=== PATIENT | male | born 1985 | race African-American/Black ===

== ENCOUNTER 2018-12-01 08:56 | Inpatient (IN) | payer OTHER ==
[2018-12-01 10:06] VITALS: BMI 25.5
--- NOTE | 2018-12-01 10:56 | HP ---
COWS - Scale Resting Pulse: 0= [place] 80 or Below Sweatin=Flushed/Facial Moisture Restless Observation: 0= Sits Still Pupil Size: 0= Normal to Room Light Bone or Joint Aches: 1= Mild Discomfort Runny Nose/ Eye Tearin= Nasal Congestion GI Upset > 30mins: 2= Nausea/Diarrhea Tremor Observation: 2= Slight Tremor Visible Yawning Observation: 1= 1-2x During Session Anxiety or Irritability: 1=Feels Anxious/Irritable Goose Flesh Skin: 3=Piloerection COWS Score: 13 CIWA Score Nausea/Vomitin-Mild Nausea/No Vomiting Muscle Tremors: 3 Anxiety: 2 Agitation: 1-Slight > Activity Paroxysmal Sweats: 3 Orientation: 0-Oriented Tacttile Disturbances: 0-None Auditory Disturbances: 0-None Visual Disturbances: 0-None Headache: 0-None Present CIWA-Ar Total Score: 10 - Admission Criteria OASAS Guidelines: Admission for Medically Managed Detox: Requires at least one of the followin. CIWA greater than 12 2. Seizures within the past 24 hours 3. Delirium tremens within the past 24 hours 4. Hallucinations within the past 24 hours 5. Acute intervention needed for co occurring medical disorder 6. Acute intervention needed for co occurring psychiatric disorder 7. Severe withdrawal that cannot be handled at a lower level of care (continued vomiting, continued diarrhea, abnormal vital signs) requiring intravenous medication and/or fluids 8. Admission ROS [facility] Chief Complaint: "I am here for detox and then rehab" Allergies/Adverse Reactions: Allergies Allergy/AdvReac Type Severity Reaction Status Date / Time No Known Allergies Allergy Verified 12/01/18 11:01 History of Present Illness: 33 y/o male with a long history of addiction presents for alcohol and opiates withdrawal. Pt endorses using Fentanyl because "i need the heroin in it and I use it when I can't get heroin". Denies substance induced seizures nor blackouts. Pt states he was in the methadone program at [facility] but stopped going since last June because "I statrted making money again to support my habit". Utox positive for methadone but he states he uses street methadone Pt denies legal mandate, states he is self referred. Denies any medical nor psychiatric hx. Denies Suicidal ideation now nor in the past. Others' Prescriptions Patient Name: Mgiuel Medina Date: 1985 Address: [address] [place] [address] Sex: Male Rx Written Rx Dispensed Drug Quantity Days Supply Prescriber Name 06/13/2018 06/17/2018 oxycodone-acetaminophen 10-325 mg tab 180 30 [place], Willam O Ii (D O ) 05/09/2018 05/17/2018 oxycodone-acetaminophen 10-325 mg tab 180 30 [place], Willam O Ii (D O ) 04/18/2018 04/18/2018 oxycodone-acetaminophen 10-325 mg tab 180 30 [place], Willam O Ii (D O ) 03/14/2018 03/23/2018 oxycodone-acetaminophen 10-325 mg tab 180 30 [place], Willam O Ii (D O ) 02/22/2018 02/25/2018 oxycodone-acetaminophen 10-325 mg tab 180 30 [place], Willam O Ii (D O ) 01/17/2018 01/19/2018 oxycodone-acetaminophen 10-325 mg tab 180 30 [place], Willam O Ii (D O ) 12/17/2017 12/24/2017 oxycodone-acetaminophen 10-325 mg tab 180 30 [place], Willam O Ii (D O ) Patient Name: Miguel Medina Date: 1985 Address: [address] [id number] Sex: Male Rx Written Rx Dispensed Drug Quantity Days Supply Prescriber Name 01/04/2018 01/04/2018 zolpidem tartrate 10 mg tablet 30 30 Claudio Cruz MD Exam Limitations: No Limitations - Ebola screening Have you traveled outside of the country in the last 21 days: No (N) Have you had contact with anyone from an Ebola affected area: No Have you been sick,other than usual withdrawal symptoms: No Do you have a fever: No - Review of Systems Constitutional: Loss of Appetite, Unintentional Wgt. Loss EENT: reports: Other (wear glasses) Respiratory: reports: No Symptoms reported Cardiac: reports: Palpitations GI: reports: Diarrhea : reports: No Symptoms Reported Musculoskeletal: reports: Back Pain (lower back) Integumentary: reports: No Symptoms Reported Neuro: reports: Headache (when withdrawing) Endocrine: reports: No Symptoms Reported Hematology: reports: No Symptoms Reported Psychiatric: reports: No Sypmtoms Reported Other Systems: Reviewed and Negative Patient History - Patient Medical History Hx Anemia: No Hx Asthma: No Hx Chronic Obstructive Pulmonary Disease (COPD): No Hx Cancer: No Hx Cardiac Disorders: No Hx Congestive Heart Failure: No Hx Hypertension: No Hx Hypercholesterolemia: No Hx Pacemaker: No HX Cerebrovascular Accident: No Hx Seizures: No Hx Dementia: No Hx Diabetes: No Hx Gastrointestinal Disorders: Yes (Heartburn sometimes, not on meds) Hx Liver Disease: No Hx Genitourinary Disorders: No Hx Sexually Transmitted Disorders: No Hx Renal Disease (ESRD): No Hx Thyroid Disease: No Hx Human Immunodeficiency Virus (HIV): No Hx Hepatitis C: No Hx Depression: Yes (Sometimes, not on meds) Hx Suicide Attempt: No (Denies SI) Hx Bipolar Disorder: No Hx Schizophrenia: No - Patient Surgical History Hx Neurologic Surgery: No Hx Cataract Extraction: No Hx Cardiac Surgery: No Hx Lung Surgery: No Hx Breast Surgery: No Hx Breast Biopsy: No Hx Abdominal Surgery: No Hx Appendectomy: No Hx Cholecystectomy: No Hx Genitourinary Surgery: No Hx Section: No Hx Orthopedic Surgery: No Hx Hysterectomy: No Anesthesia Reaction: No - PPD History Previous Implant?: Yes Documented Results: Positive w/o proof PPD to be Administered?: No - Reproductive History Patient is a Female of Child Bearing Age (11 -55 yrs old): No - Smoking Cessation Smoking history: Current every day smoker Have you smoked in the past 12 months: Yes Aproximately how many cigarettes per day: 10 Initiated information on smoking cessation: Yes 'Breaking Loose' booklet given: 12/01/18 - Substance & Tx. History Hx Alcohol Use: Yes Hx Substance Use: Yes Substance Use Type: Alcohol, Heroin, Opiates Hx Substance Use Treatment: No - Substances Abused Alcohol Route: Oral Frequency: 3-6 times per week Amount used: a fifth of cognac Age of first use: 16 Date of Last Use: 11/29/18 Heroin Route: Inhalation Frequency: Daily Amount used: 5 bags Age of first use: 31 Date of Last Use: 11/30/18 Family Disease History - Family Disease History Family Disease History: Heart Disease: Mother (Alcohol), Other: Father ( Substance abuse), Mother Admission Physical Exam BHS - Vital Signs Vital Signs: Vital Signs - 24 hr 12/01/18 10:05 Temperature 98.3 F Pulse Rate 78 Respiratory 20 Rate Blood Pressure 114/58 L - Physical General Appearance: Yes: Mild Distress HEENTM: Yes: Other (wears glasses) Respiratory: Yes: Chest Non-Tender, No Respiratory Distress, No Accessory Muscle Use Neck: Yes: No masses,lesions,Nodules, Trachea in good position Breast: Yes: Breast Exam Deferred Cardiology: Yes: Within Normal Limits Abdominal: Yes: Normal Bowel Sounds, Soft, Distended Genitourinary: Yes: Within Normal Limits Back: Yes: Within Normal Limits Musculoskeletal: Yes: full range of Motion, Gait Steady Extremities: Yes: Normal Capillary Refill, Normal Inspection Neurological: Yes: Within Normal Limits, Fully Oriented, Alert, Motor Strength 5 /5 Integumentary: Yes: Within Normal Limits Lymphatic: Yes: Within Normal Limits - Diagnostic (1) Uncomplicated opioid dependence Current Visit: Yes Status: Acute (2) Alcohol dependence, uncomplicated Current Visit: Yes Status: Acute (3) Marijuana dependence Current Visit: Yes Status: Acute (4) Nicotine dependence Current Visit: Yes Status: Acute (5) Fentanyl dependence Current Visit: Yes Status: Acute (6) Sad mood Current Visit: Yes Status: Acute (7) Homelessness Current Visit: Yes Status: Acute Cleared for Admission S - Detox or Rehab [facility] Level of Care: Medically Managed Detox Regimen/Protocol: Methadone/Librium BHS Breath Alcohol Content Breath Alcohol Content: 0 Urine Drug Screen - Results Drug Screen Negative: No Urine Drug Screen Results: THC-Marijuana, MTD-Methadone, FEN-Fentanyl Inpatient Rehab Admission - Rehab Decision to Admit Inpatient rehab admission?: No
[2018-12-01] MEDS ORDERED: METHADONE HCL 10 MG TABLET (FOR DETOX USE ONLY) PO ONE ×2 (11:46→23:00)
[2018-12-01] MEDS ORDERED: MAG HYDROX/AL HYDROX/SIMETH 30 ML UNIT-DOSE CUP PO PRN (11:46)
[2018-12-01] MEDS ORDERED: MENTHOL/PHENOL 1 EACH UD MM PRN (11:46)
[2018-12-01] MEDS ORDERED: NICOTINE POLACRILEX 2 MG GUM BUC PRN (11:46)
[2018-12-01] MEDS ORDERED: guaiFENesin/D-METHORPHAN HB 10 ML UNIT-DOSE CUPS PO PRN (11:46)
[2018-12-01] MEDS ORDERED: IBUPROFEN 400 MG TABLET (FP) PO PRN (11:46)
[2018-12-01] MEDS ORDERED: LOPERAMIDE HCL 2 MG CAPSULE PO PRN (11:46)
[2018-12-01] MEDS ORDERED: ACETAMINOPHEN 325 MG TABLET (FP) PO PRN (11:46)
[2018-12-01] MEDS ORDERED: MAGNESIUM HYDROX 2400MG/30ML ORAL SUSPENSION 30 ML CUP PO PRN (11:46)
[2018-12-01] MEDS ORDERED: MAGNESIUM CITRATE 300 ML BOTTLE PO PRN (11:46)
[2018-12-01] MEDS ORDERED: P-EPHED 60MG/TRIPROLIDI 2.5MG TABLET PO PRN (11:46)
[2018-12-01] MEDS ORDERED: chlordiazePOXIDE HCL 25 MG CAPSULE PO PRN (11:46)
[2018-12-01] MEDS: NICOTINE 14 MG/24 HOURS TOPICAL PATCH TD SCH (14:42)
[2018-12-01] MEDS: chlordiazePOXIDE HCL 25 MG CAPSULE PO SCH ×2 (17:35→22:26)
[2018-12-01] MEDS ORDERED: MELATONIN 5 MG TABLETS PO PRN (22:00)
[2018-12-01] MEDS: THIAMINE HCL 100 MG TABLET (FP) PO SCH (22:26)
[2018-12-02] MEDS: chlordiazePOXIDE HCL 25 MG CAPSULE PO SCH ×4 (06:22→22:13)
[2018-12-02 09:54] LABS: HEMATOCRIT 36.8 % (35.4-49); HEMOGLOBIN 12.1 GM/dL (11.7-16.9); MCH 29.5 pg (25.7-33.7); MCHC 32.9 g/dl (32.0-35.9); MEAN CELL VOLUME 89.7 fl (80-96); MEAN PLT VOLUME 8.7 fl (7.5-11.1); PLATELET COUNT 207 K/MM3 (134-434); RBC 4.11 M/mm3 (4.00-5.60); WHITE BLOOD COUNT 8.3 K/mm3 (4.0-10.0)
[2018-12-02] MEDS ORDERED: METHADONE HCL 10 MG TABLET (FOR DETOX USE ONLY) PO SCH (10:00)
[2018-12-02] MEDS: PRENATAL VITAMINS W/ FOLIC ACID TABLET (FP) PO SCH (10:10)
[2018-12-02] MEDS: NICOTINE 14 MG/24 HOURS TOPICAL PATCH TD SCH (10:12)
[2018-12-02 10:29] LABS: ALBUMIN 3.8 g/dl (3.4-5.0); ALK PHOS 73 U/L (45-117); ANION GAP 5 MMOL/L (8-16); BILIRUBIN,TOTAL 0.5 mg/dL (0.2-1); BLOOD UREA NITROGEN 16 mg/dL (7-18); CALCIUM 9.2 mg/dL (8.5-10.1); CHLORIDE 104 mmol/L (98-107); CO2 31 mmol/L (21-32); CREATININE 0.8 mg/dL (0.55-1.3); GLUCOSE,RANDOM 50 mg/dL (74-106); POTASSIUM 4.2 mmol/L (3.5-5.1); SGOT/AST 17 U/L (15-37); SGPT/ALT 20 U/L (13-61); SODIUM 139 mmol/L (136-145); TOT PROT 6.6 g/dl (6.4-8.2)
--- NOTE | 2018-12-02 14:13 | CONSULT ---
[facility] Psychiatric Consult - Data Date of interview: 12/02/18 Admission source: [facility] Identifying data: This is a 33 years old male, single, childless, unemployed, homeless, on [place] support, [facility] no psychiatric hospitalization history, is here due to Alcohol, Opioids, Cannabis and Nicotine dependence, is reporting withdrawal symptoms and seeking for detox. Substance Abuse History: Smoking history: Current every day smoker. Have you smoked in the past 12 months: Yes. Aproximately how many cigarettes per day: 10. Initiated information on smoking cessation: Yes. 'Breaking Loose' booklet given: 12/01/18. - Substance & Tx. History. Hx Alcohol Use: Yes. Hx Substance Use: Yes. Substance Use Type: Alcohol, Heroin, Opiates. Hx Substance Use Treatment: No. - Substances Abused. Alcohol. Route: Oral. Frequency: 3-6 times per week. Amount used: a fifth of cognac. Age of first use: 16. Date of Last Use: 11/29/18. Heroin. Route: Inhalation. Frequency : Daily. Amount used: 5 bags. Age of first use: 31. Date of Last Use: Medical History: Denies significant medical problems. MMTP history Psychiatric History: Patient reports history of depression and anxiety, reports taking prior to0m admission: [id number] poqd. Elavil 50mg po qhs. Patient denies suicidal homicidal history, psychiatric hospitalization history as well. Physical/Sexual Abuse/Trauma History: Denies Additional Comment: [id number] poqd. Elavil 50mg po qhs Mental Status Exam - Mental Status Exam Alert and Oriented to: Person Cognitive Function: Fair Patient Appearance: Well Groomed Mood: Anxious Affect: Mood Congruent Patient Behavior: Cooperative Speech Pattern: Appropriate Voice Loudness: Mildly Soft/Quiet Thought Process: Goal Oriented Thought Disorder: Being Controlled Hallucinations: Denies Suicidal Ideation: Denies Homicidal Ideation: Denies Insight/Judgement: Fair Sleep: Difficulty falling asleep Appetite: Fair Muscle strength/Tone: Normal Gait/Station: Normal Additional Comments: [id number] poqd. Elavil 50mg po qhs Psychiatric Findings - Problem List (Drayden 1, 2,3) (1) Drug-induced mood disorder Current Visit: Yes Status: Acute (2) Alcohol dependence, uncomplicated Current Visit: Yes Status: Acute (3) Fentanyl dependence Current Visit: Yes Status: Acute (4) Marijuana dependence Current Visit: Yes Status: Acute (5) Nicotine dependence Current Visit: Yes Status: Acute (6) Sad mood Current Visit: Yes Status: Acute - Initial Treatment Plan Initial Treatment Plan: [id number] poqd. Elavil 50mg po qhs
--- NOTE | 2018-12-02 15:00 | PN ---
S CIWA - CIWA Score Nausea/Vomitin-No Nausea/No Vomiting Muscle Tremors: None Anxiety: 5 Agitation: 3 Paroxysmal Sweats: 3 Orientation: 0-Oriented Tacttile Disturbances: 3-Moderate Itch/Numb/Burn Auditory Disturbances: 0-None Visual Disturbances: 0-None Headache: 2-Mild CIWA-Ar Total Score: 16 BHS COWS - Scale Resting Pulse: 1= [place] 81-100 Sweatin= Chills/Flushing Restless Observation: 1= Difficult to Sit Still Pupil Size: 0= Normal to Room Light Bone or Joint Aches: 4=Acute Joint/Muscle Pain Runny Nose/ Eye Tearin= None GI Upset > 30mins: 1= Stomach Cramp Tremor Observation of Outstretched Hands: 0= None Yawning Observation: 0= None Anxiety or Irritability: 4=Extreme Anxiety Goose Flesh Skin: 0=Smooth Skin COWS Score: 12 BHS Progress Note (SOAP) Subjective: Sweating, Chills, H/A, Body Aches, Stomach Cramping, Interrupted Sleep. Objective: PATIENT A & O X 3, OBSERVED AMBULATING ON UNIT. IN NO ACUTE DISTRESS. 12/02/18 14:59 Vital Signs Temperature 97.3 F L 12/02/18 13:31 Pulse Rate 83 12/02/18 13:31 Respiratory Rate 18 12/02/18 13:31 Blood Pressure 111/70 12/02/18 13:31 O2 Sat by Pulse Oximetry (%) Laboratory Tests 12/02/18 12/02/18 12/02/18 07:50 07:50 08:00 WBC 8.3 RBC 4.11 Hgb 12.1 Hct 36.8 MCV 89.7 MCH 29.5 MCHC 32.9 RDW 16.0 H Plt Count 207 MPV 8.7 Sodium 139 Potassium 4.2 Chloride 104 Carbon Dioxide 31 Anion Gap 5 L BUN 16 Creatinine 0.8 Creat Clearance w eGFR > 60 Random Glucose 50 L Calcium 9.2 Total Bilirubin 0.5 AST 17 ALT 20 Alkaline Phosphatase 73 Total Protein 6.6 Albumin 3.8 RPR Titer Nonreactive LABS NOTED. Assessment: 12/02/18 14:59 WITHDRAWAL SYMPTOMS. Plan: CONTINUE DETOX. INCREASE DAILY PO FLUID INTAKE. ROBOXIN PO BID FOR BODY ACHES/ MUSCLE CRAMPS.
[2018-12-02] MEDS: METHOCARBAMOL 750 MG TABLET PO SCH ×2 (15:49→22:13)
[2018-12-02] MEDS: PARoxetine HCL 10 MG TABLET (FP) PO SCH (15:49)
[2018-12-02] MEDS ORDERED: PARoxetine HCL 10 MG TABLET (FP) PO ONE (16:30)
[2018-12-02] MEDS ORDERED: AMITRIPTYLINE HCL 25 MG TABLET (FP) PO SCH (22:00)
[2018-12-02] MEDS: THIAMINE HCL 100 MG TABLET (FP) PO SCH (22:13)
[2018-12-03] MEDS: chlordiazePOXIDE HCL 25 MG CAPSULE PO SCH ×2 (06:15→10:18)
[2018-12-03] MEDS ORDERED: METHADONE HCL 5 MG TABLET (FOR DETOX USE ONLY) PO SCH (10:00)
[2018-12-03] MEDS: NICOTINE 14 MG/24 HOURS TOPICAL PATCH TD SCH (10:18)
[2018-12-03] MEDS: PARoxetine HCL 10 MG TABLET (FP) PO SCH (10:19)
[2018-12-03] MEDS: METHOCARBAMOL 750 MG TABLET PO SCH (10:19)
[2018-12-03] MEDS: PRENATAL VITAMINS W/ FOLIC ACID TABLET (FP) PO SCH (10:19)
--- NOTE | 2018-12-03 10:23 | PN ---
S CIWA - CIWA Score Nausea/Vomitin Muscle Tremors: 2 Anxiety: 2 Agitation: 2 Paroxysmal Sweats: 1-Minimal Palms Moist Orientation: 0-Oriented Tacttile Disturbances: 1-Very Mild Itch/Numbness Auditory Disturbances: 1-Very Mild Visual Disturbances: 0-None Headache: 2-Mild CIWA-Ar Total Score: 13 BHS COWS - Scale Resting Pulse: 0= [place] 80 or Below Sweatin= Chills/Flushing Restless Observation: 1= Difficult to Sit Still Pupil Size: 1= Pupils >than Normal Bone or Joint Aches: 2= Severe Diffuse Aches Runny Nose/ Eye Tearin= Runny Nose/Eyes GI Upset > 30mins: 2= Nausea/Diarrhea Tremor Observation of Outstretched Hands: 2= Slight Tremor Visible Yawning Observation: 1= 1-2x During Session Anxiety or Irritability: 2=Irritable/Anxious Goose Flesh Skin: 0=Smooth Skin COWS Score: 14 S Progress Note (SOAP) Subjective: alert,irritable,anxious,interrupted sleep,tremor Objective: 12/03/18 10:22 Vital Signs Temperature 97.9 F 12/03/18 09:17 Pulse Rate 70 12/03/18 09:17 Respiratory Rate 18 12/03/18 09:17 Blood Pressure 103/53 L 12/03/18 09:17 O2 Sat by Pulse Oximetry (%) Assessment: 12/03/18 10:22 withdrawal symptom Plan: continue detox
[2018-12-03 13:12] VITALS: BP 105/50; PULSE 72; TEMP 97.7
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
--- NOTE | 2018-12-03 14:16 | DS ---
[facility] Detox Discharge Summary Admission Date: 12/01/18 - History Present History: Alcohol Dependence, Cannabis Dependence, Opioid Dependence - Physical Exam Results Vital Signs: Vital Signs Temperature 97.7 F 12/03/18 13:11 Pulse Rate 72 12/03/18 13:11 Respiratory Rate 18 12/03/18 13:11 Blood Pressure 105/50 L 12/03/18 13:11 O2 Sat by Pulse Oximetry (%) - Treatment Hospital Course: Discharged Condition Good - Medication Discharge Medications: Ambulatory Orders Amitriptyline HCl [Elavil -] 50 mg PO HS #30 tablet 12/02/18 Paroxetine HCl [Paxil -] 30 mg PO DAILY #30 tablet 12/02/18 - Diagnosis (1) Alcohol dependence, uncomplicated Current Visit: Yes Status: Chronic (2) Drug-induced mood disorder Current Visit: Yes Status: Acute (3) Fentanyl dependence Current Visit: Yes Status: Chronic (4) Marijuana dependence Current Visit: Yes Status: Chronic (5) Nicotine dependence Current Visit: Yes Status: Chronic Qualifiers: Nicotine product type: cigarettes Substance use status: uncomplicated Qualified Code(s): F17.210 - Nicotine dependence, cigarettes, uncomplicated (6) Uncomplicated opioid dependence Current Visit: Yes Status: Chronic - AMA Did Patient Leave Against Medical Advice: No (administrative discharge)
[2018-12-03] MEDS ORDERED: chlordiazePOXIDE 5 MG CAPSULE PO SCH (17:00)
[2018-12-04] MEDS ORDERED: chlordiazePOXIDE HCL 10 MG CAPSULE PO SCH (17:00)
[2018-12-05] MEDS ORDERED: METHADONE HCL 10 MG TABLET (FOR DETOX USE ONLY) PO SCH (10:00)
[2018-12-06] MEDS ORDERED: METHADONE HCL 5 MG TABLET (FOR DETOX USE ONLY) PO SCH (06:00)
== END 2018-12-03 01:46 | disposition home or self-care (01) | DRG 773 ==
LOC: YASAS 08:56 → Y6N 13:23
PROVIDERS: ADMIT Surgery; ATTEND Surgery
PROC: HZ2ZZZZ Detoxification Services for Substance Abuse Treatment (ICD-10-PCS; principal; 2018-12-01)
DX: F11.23 Opioid dependence with withdrawal (principal); F10.230 Alcohol dependence with withdrawal, uncomplicated; F12.20 Cannabis dependence, uncomplicated; F17.210 Nicotine dependence, cigarettes, uncomplicated; F19.24 Other psychoactive substance dependence with psychoactive substance-induced mood disorder; F91.8 Other conduct disorders; F39 Unspecified mood [affective] disorder; Z59.0 Homelessness
CPT/HCPCS: 36415; 71045-TC-FY; 80053; 85027; 86593

== ENCOUNTER 2021-06-30 19:57 | Inpatient (IN) | payer OTHER ==
[2021-06-30 20:47] VITALS: BMI 25.0
[2021-07-01] MEDS ORDERED: IBUPROFEN 400 MG TABLET (FP) PO PRN (00:41)
[2021-07-01] MEDS ORDERED: ACETAMINOPHEN 325 MG TABLET (FP) PO PRN ×2 (00:41)
[2021-07-01] MEDS ORDERED: BISMUTH SUBSALICYLATE 524 MG/30 ML PO PRN (00:41)
[2021-07-01] MEDS ORDERED: MAG HYDROX/AL HYDROX/SIMETH 30 ML UNIT-DOSE CUP PO PRN (00:41)
[2021-07-01] MEDS ORDERED: ONDANSETRON *ODT* 4 MG TABLET SL PRN (00:41)
[2021-07-01] MEDS ORDERED: MAGNESIUM HYDROX 2400MG/30ML ORAL SUSPENSION 30 ML CUP PO PRN (00:41)
[2021-07-01] MEDS ORDERED: hydrOXYzine PAMOATE 25 MG CAPSULE (FP) PO PRN (00:41)
[2021-07-01] MEDS ORDERED: NICOTINE POLACRILEX 2 MG GUM BUC PRN (00:41)
[2021-07-01] MEDS ORDERED: MAGNESIUM CITRATE 300 ML BOTTLE PO PRN (00:41)
[2021-07-01] MEDS ORDERED: METHOCARBAMOL 500 MG TABLET PO PRN (00:41)
[2021-07-01] MEDS ORDERED: MENTHOL/PHENOL 1 EACH UD MM PRN (00:41)
[2021-07-01] MEDS ORDERED: LORazepam 1 MG TABLET PO PRN (00:44)
[2021-07-01] MEDS ORDERED: cloNIDine HCL 0.1 MG TABLET PO PRN (00:44)
[2021-07-01] MEDS ORDERED: methaDONE HCL 10 MG TABLET (FOR DETOX USE ONLY) PO ONE (00:44)
[2021-07-01] MEDS ORDERED: LORazepam 2 MG TABLET ONE (04:50)
[2021-07-01] MEDS: LORazepam 2 MG TABLET PO SCH ×4 (04:54→22:25)
[2021-07-01 11:22] LABS: HEMATOCRIT 35.2 % (35.4-49); HEMOGLOBIN 11.9 GM/dL (11.7-16.9); MCH 29.8 pg (25.7-33.7); MCHC 33.9 g/dl (32.0-35.9); MEAN CELL VOLUME 88.1 fl (80-96); PLATELET COUNT 263 10^3/uL (134-434); RBC 3.99 M/mm3 (4.00-5.60); RDW 15.4 % (11.9-15.9); WHITE BLOOD COUNT 6.6 K/mm3 (4.0-10.0)
[2021-07-01 11:26] LABS: BLOOD UREA NITROGEN 9.7 mg/dL (7-18); CALCIUM 8.6 mg/dL (8.5-10.1)
[2021-07-01 11:27] LABS: ALBUMIN 3.1 g/dl (3.4-5.0)
[2021-07-01 11:29] LABS: CREATININE 0.7 mg/dL (0.55-1.3)
[2021-07-01 11:31] LABS: BILIRUBIN,TOTAL 0.2 mg/dL (0.2-1); TOT PROT 6.6 g/dl (6.4-8.2)
[2021-07-01] MEDS: PRENATAL VITAMINS W/ FOLIC ACID TABLET (FP) PO SCH (11:35)
[2021-07-01] MEDS: NICOTINE 14 MG/24 HOURS TOPICAL PATCH TD SCH (11:37)
[2021-07-01 12:17] LABS: HIV INTERPRETATION NEGATIVE (NEGATIVE)
[2021-07-01] MEDS: GABAPENTIN 300 MG CAPSULE PO SCH ×2 (16:34→22:25)
[2021-07-01] MEDS: THIAMINE HCL 100 MG TABLET (FP) PO SCH (22:25)
[2021-07-01] MEDS: MIRTAZAPINE 15 MG TABLET (FP) PO SCH (22:25)
[2021-07-01] MEDS: MELATONIN 5 MG TABLETS PO SCH (22:26)
[2021-07-01] MEDS: AMITRIPTYLINE HCL 25 MG TABLET PO SCH (22:26)
[2021-07-02] MEDS: LORazepam 1 MG TABLET PO SCH ×4 (06:07→22:23)
[2021-07-02] MEDS: GABAPENTIN 300 MG CAPSULE PO SCH ×3 (06:07→22:22)
[2021-07-02] MEDS ORDERED: methaDONE HCL 10 MG TABLET (FOR DETOX USE ONLY) ONE ×2 (08:58→10:42)
[2021-07-02] MEDS: PRENATAL VITAMINS W/ FOLIC ACID TABLET (FP) PO SCH (10:36)
[2021-07-02] MEDS: SERTRALINE HCL 50 MG TABLET (FP) PO SCH (10:36)
[2021-07-02] MEDS: NICOTINE 14 MG/24 HOURS TOPICAL PATCH TD SCH (10:37)
[2021-07-02] MEDS: MIRTAZAPINE 15 MG TABLET (FP) PO SCH (22:22)
[2021-07-02] MEDS: THIAMINE HCL 100 MG TABLET (FP) PO SCH (22:22)
[2021-07-02] MEDS: MELATONIN 5 MG TABLETS PO SCH (22:23)
[2021-07-02] MEDS: AMITRIPTYLINE HCL 25 MG TABLET PO SCH (22:27)
[2021-07-03] MEDS ORDERED: LORazepam 0.5 MG TABLET PO PRN
[2021-07-03] MEDS: LORazepam 0.5 MG TABLET PO SCH ×2 (06:54→10:52)
[2021-07-03] MEDS: GABAPENTIN 300 MG CAPSULE PO SCH ×2 (06:54→13:03)
[2021-07-03] MEDS ORDERED: methaDONE HCL 10 MG TABLET (FOR DETOX USE ONLY) PO ONE (10:00)
[2021-07-03 10:34] VITALS: BP 115/70; PULSE 75; TEMP 97.3
[2021-07-03] MEDS: NICOTINE 14 MG/24 HOURS TOPICAL PATCH TD SCH (10:52)
[2021-07-03] MEDS: PRENATAL VITAMINS W/ FOLIC ACID TABLET (FP) PO SCH (10:52)
[2021-07-03] MEDS: SERTRALINE HCL 50 MG TABLET (FP) PO SCH (10:52)
[2021-07-04] MEDS ORDERED: LORazepam 0.5 MG TABLET PO ONE (05:00)
[2021-07-05] MEDS ORDERED: methaDONE HCL 10 MG TABLET (FOR DETOX USE ONLY) PO ONE (10:00)
== END 2021-07-03 13:42 | disposition left against medical advice (07) | DRG 770 ==
LOC: YASAS 19:57 → Y6N 07-01 09:08
PROVIDERS: ADMIT Allergy & Immunology; ATTEND Allergy & Immunology
PROC: HZ2ZZZZ Detoxification Services for Substance Abuse Treatment (ICD-10-PCS; principal; 2021-07-01)
DX: F11.23 Opioid dependence with withdrawal (principal); F10.230 Alcohol dependence with withdrawal, uncomplicated; F14.20 Cocaine dependence, uncomplicated; F12.20 Cannabis dependence, uncomplicated; F17.210 Nicotine dependence, cigarettes, uncomplicated; F19.24 Other psychoactive substance dependence with psychoactive substance-induced mood disorder; F41.9 Anxiety disorder, unspecified; F32.9 Major depressive disorder, single episode, unspecified; D64.9 Anemia, unspecified; G47.00 Insomnia, unspecified; R76.11 Nonspecific reaction to tuberculin skin test without active tuberculosis; Z87.828 Personal history of other (healed) physical injury and trauma
CPT/HCPCS: 36415; 71046-TC-FY; 80053; 85027; 86780; 87389; 93005; 93010; C9803; U0003; U0005

== ENCOUNTER 2023-02-26 16:26 | Inpatient (IN) | payer OTHER ==
[2023-02-26 17:10] VITALS: BMI 27.3
[2023-02-26] MEDS ORDERED: ONDANSETRON *ODT* 4 MG TABLET SL PRN (17:35)
[2023-02-26] MEDS ORDERED: POLYETHYLENE GLYCOL (HEALTHYLAX) 3350 17 GM PACKET PO PRN (17:35)
[2023-02-26] MEDS ORDERED: BISMUTH SUBSALICYLATE 524 MG/30 ML PO PRN (17:35)
[2023-02-26] MEDS ORDERED: BENZOCAINE/MENTHOL (CHLORASEPTIC ) LOZENGE MM PRN (17:35)
[2023-02-26] MEDS ORDERED: NALOXONE HCL (KLOXXADO) 8 MG SPRAY NS PRN (17:35)
[2023-02-26] MEDS ORDERED: NICOTINE POLACRILEX 2 MG GUM BUC PRN (17:35)
[2023-02-26] MEDS ORDERED: guaiFENesin 600 MG TABLET.ER (FP) PO PRN (17:35)
[2023-02-26] MEDS ORDERED: METHOCARBAMOL 500 MG TABLET PO PRN (17:35)
[2023-02-26] MEDS ORDERED: MAGNESIUM HYDROX 2400MG/30ML ORAL SUSPENSION 30 ML CUP PO PRN (17:35)
[2023-02-26] MEDS ORDERED: ACETAMINOPHEN 325 MG TABLET (FP) PO PRN (17:35)
[2023-02-26] MEDS ORDERED: DICYCLOMINE HCL 10 MG CAPSULE PO PRN (17:35)
[2023-02-26] MEDS ORDERED: IBUPROFEN 600 MG TABLET (FP) PO PRN (17:35)
[2023-02-26] MEDS ORDERED: NALOXONE HCL 0.4 MG/ML VIAL IM PRN (17:35)
[2023-02-26] MEDS ORDERED: MAG HYDROX/AL HYDROX/SIMETH 30 ML UNIT-DOSE CUP PO PRN (17:35)
[2023-02-26] MEDS ORDERED: IBUPROFEN 400 MG TABLET (FP) PO PRN (17:35)
[2023-02-26] MEDS ORDERED: LOPERAMIDE HCL 2 MG CAPSULE PO PRN (17:35)
[2023-02-26] MEDS ORDERED: P-EPHED 60MG/TRIPROLIDI 2.5MG TABLET PO PRN (17:35)
[2023-02-26] MEDS ORDERED: BENZONATATE 200 MG CAPSULE PO PRN (17:35)
[2023-02-26 19:20] VITALS: RESP 18
[2023-02-26] MEDS: THIAMINE HCL 100 MG TABLET (FP) PO SCH (22:20)
[2023-02-26] MEDS: MELATONIN 5 MG TABLETS PO PRN (22:21)
[2023-02-27] MEDS ORDERED: diazePAM 5 MG TABLET PO PRN (09:34)
[2023-02-27] MEDS ORDERED: METHOCARBAMOL 500 MG TABLET PO PRN (09:35)
[2023-02-27] MEDS: PRENATAL VITAMINS W/ FOLIC ACID TABLET (FP) PO SCH (10:29)
[2023-02-27] MEDS: diazePAM 5 MG TABLET PO SCH ×3 (10:29→22:42)
[2023-02-27] MEDS: NICOTINE 7 MG/24 HOURS TOPICAL PATCH TD SCH (10:31)
[2023-02-27 12:29] LABS: HEMATOCRIT 35.5 % (35.4-49); HEMOGLOBIN 11.7 GM/dL (11.7-16.9); MCH 28.5 pg (25.7-33.7); MCHC 33.1 g/dl (32.0-35.9); MEAN CELL VOLUME 86.1 fl (80-96); MEAN PLT VOLUME 9.3 fl (7.5-11.1); PLATELET COUNT 217 10^3/uL (134-434); RBC 4.12 M/mm3 (4.00-5.60); RDW 15.4 % (11.9-15.9); WHITE BLOOD COUNT 6.5 K/mm3 (4.0-10.0)
[2023-02-27 12:33] LABS: POTASSIUM 3.9 mmol/L (3.5-5.1)
[2023-02-27 12:58] LABS: ALBUMIN 3.3 g/dl (3.4-5.0); BLOOD UREA NITROGEN 9.1 mg/dL (7-18); CALCIUM 8.8 mg/dL (8.5-10.1)
[2023-02-27 13:00] LABS: CREATININE 0.8 mg/dL (0.55-1.3)
[2023-02-27 13:01] LABS: TOT PROT 6.3 g/dl (6.4-8.2)
[2023-02-27 13:02] LABS: BILIRUBIN,TOTAL 0.4 mg/dL (0.2-1)
[2023-02-27] MEDS: GABAPENTIN 300 MG CAPSULE PO SCH ×2 (13:15→22:41)
[2023-02-27] MEDS: BUPRENORPHINE/NALOXONE 8 MG/2 MG FILM PACKET SL SCH ×2 (13:16→22:42)
[2023-02-27] MEDS ORDERED: BUPRENORPHINE/NALOXONE 8 MG/2 MG FILM PACKET SL SCH (14:00)
[2023-02-27] MEDS ORDERED: MIRTAZAPINE 30 MG TABLET PO SCH (22:00)
[2023-02-27] MEDS: THIAMINE HCL 100 MG TABLET (FP) PO SCH (22:41)
[2023-02-27] MEDS: MELATONIN 5 MG TABLETS PO PRN (22:42)
[2023-02-28] MEDS: GABAPENTIN 300 MG CAPSULE PO SCH ×2 (05:48→13:39)
[2023-02-28] MEDS: diazePAM 5 MG TABLET PO SCH ×2 (05:48→10:53)
[2023-02-28] MEDS: BUPRENORPHINE/NALOXONE 8 MG/2 MG FILM PACKET SL SCH ×2 (06:12→13:37)
[2023-02-28] MEDS: PRENATAL VITAMINS W/ FOLIC ACID TABLET (FP) PO SCH (10:52)
[2023-02-28] MEDS: NICOTINE 7 MG/24 HOURS TOPICAL PATCH TD SCH (10:52)
[2023-02-28 13:40] VITALS: BP 130/73; PULSE 67; TEMP 98.9
[2023-03-01] MEDS ORDERED: diazePAM 5 MG TABLET PO SCH (06:00)
[2023-03-02] MEDS ORDERED: diazePAM 5 MG TABLET PO SCH (06:00)
[2023-03-03] MEDS ORDERED: diazePAM 5 MG TABLET PO ONE (06:00)
== END 2023-02-28 16:12 | disposition left against medical advice (07) | DRG 770 ==
LOC: YASAS 16:26 → Y6N 17:59
PROVIDERS: ADMIT Allergy & Immunology; ATTEND Surgery
PROC: HZ2ZZZZ Detoxification Services for Substance Abuse Treatment (ICD-10-PCS; principal; 2023-02-26)
DX: F11.23 Opioid dependence with withdrawal (principal); F10.230 Alcohol dependence with withdrawal, uncomplicated; F14.20 Cocaine dependence, uncomplicated; F13.20 Sedative, hypnotic or anxiolytic dependence, uncomplicated; F12.20 Cannabis dependence, uncomplicated; F17.210 Nicotine dependence, cigarettes, uncomplicated; F19.282 Other psychoactive substance dependence with psychoactive substance-induced sleep disorder; F41.9 Anxiety disorder, unspecified; F32.A Depression, unspecified
CPT/HCPCS: 36415; 80053; 85027; 86780; 87811; C9803-CS; U0003; U0005

== ENCOUNTER 2024-12-03 16:43 | Inpatient (IN) | payer OTHER ==
[2024-12-03 17:22] VITALS: BMI 24.3
[2024-12-03] MEDS ORDERED: BENZOCAINE/MENTHOL (CHLORASEPTIC ) LOZENGE MM PRN (18:14)
[2024-12-03] MEDS ORDERED: ACETAMINOPHEN 325 MG TABLET (FP) PO PRN (18:14)
[2024-12-03] MEDS ORDERED: IBUPROFEN 400 MG TABLET (FP) PO PRN (18:14)
[2024-12-03] MEDS ORDERED: MAG HYDROX/AL HYDROX/SIMETH 30 ML UNIT-DOSE CUP PO PRN (18:14)
[2024-12-03] MEDS ORDERED: BENZONATATE 200 MG CAPSULE PO PRN (18:14)
[2024-12-03] MEDS ORDERED: ONDANSETRON *ODT* 4 MG TABLET SL PRN (18:14)
[2024-12-03] MEDS ORDERED: guaiFENesin 600 MG TABLET.ER (FP) PO PRN (18:14)
[2024-12-03] MEDS ORDERED: NALOXONE (NARCAN) HCL 4 MG/0.1 ML SPRAY NS PRN (18:14)
[2024-12-03] MEDS ORDERED: LOPERAMIDE HCL 2 MG CAPSULE PO PRN (18:14)
[2024-12-03] MEDS ORDERED: MAGNESIUM HYDROX 2400MG/30ML ORAL SUSPENSION 30 ML CUP PO PRN (18:14)
[2024-12-03] MEDS ORDERED: DICYCLOMINE HCL 10 MG CAPSULE PO PRN (18:14)
[2024-12-03] MEDS ORDERED: POLYETHYLENE GLYCOL (HEALTHYLAX) 3350 17 GM PACKET PO PRN (18:14)
[2024-12-03] MEDS ORDERED: NICOTINE POLACRILEX 2 MG GUM BUC PRN (18:14)
[2024-12-03] MEDS ORDERED: BISMUTH SUBSALICYLATE 524 MG/30 ML PO PRN (18:14)
[2024-12-03] MEDS: MELATONIN 5 MG TABLETS PO SCH (23:00)
[2024-12-03] MEDS: THIAMINE 100 MG TABLET PO SCH (23:00)
[2024-12-03] MEDS: IBUPROFEN 600 MG TABLET (FP) PO PRN (23:29)
[2024-12-03] MEDS: AMITRIPTYLINE HCL 25 MG TABLET PO ONE (23:29)
[2024-12-04] MEDS ORDERED: diazePAM 5 MG TABLET PO PRN (07:53)
[2024-12-04] MEDS ORDERED: methaDONE HCL 10 MG TABLET (FOR DETOX USE ONLY) PO PRN (08:14)
[2024-12-04] MEDS ORDERED: cloNIDine HCL 0.1 MG TABLET PO PRN (08:14)
[2024-12-04] MEDS: methaDONE HCL 10 MG TABLET (FOR DETOX USE ONLY) PO ONE (09:10)
[2024-12-04] MEDS: diazePAM 5 MG TABLET PO ONE ×2 (09:10→09:19)
[2024-12-04] MEDS: PRENATAL VITAMINS W/ FOLIC ACID TABLET (FP) PO SCH (09:20)
[2024-12-04] MEDS: NICOTINE 14 MG/24 HOURS TOPICAL PATCH TD SCH (09:20)
[2024-12-04] MEDS ORDERED: diazePAM 5 MG TABLET PO SCH (11:00)
[2024-12-04] MEDS: diazePAM 5 MG TABLET PO SCH (11:42)
[2024-12-04 13:40] LABS: HEMOGLOBIN 12.7 GM/dL (11.7-16.9); MCH 28.2 pg (25.7-33.7); MCHC 32.5 g/dl (32.0-35.9); MEAN CELL VOLUME 86.6 fl (80-96); MEAN PLT VOLUME 8.3 fl (7.5-11.1); PLATELET COUNT 239 10^3/uL (134-434); RDW 15.9 % (11.9-15.9); WHITE BLOOD COUNT 6.3 K/mm3 (4.0-10.0)
[2024-12-04 13:41] LABS: CHLORIDE 104 mmol/L (98-107); POTASSIUM 4.3 mmol/L (3.5-5.1); SODIUM 141 mmol/L (136-145)
[2024-12-04 13:45] LABS: ALBUMIN 3.6 g/dl (3.4-5.0); ANION GAP 7 mmol/L (4-13); CALCIUM 9.4 mg/dL (8.5-10.1); CO2 29 mmol/L (21-32)
[2024-12-04 13:48] LABS: SGOT/AST 18 U/L (15-37); SGPT/ALT 22 U/L (13-61)
[2024-12-04 13:49] LABS: BILIRUBIN,TOTAL 0.5 mg/dL (0.2-1); GLUCOSE,RANDOM 96 mg/dL (74-106); TOT PROT 6.8 g/dl (6.4-8.2)
[2024-12-04 13:51] LABS: ALK PHOS 81 U/L (45-117); CREATININE 0.8 mg/dL (0.55-1.3)
[2024-12-04] MEDS: AMITRIPTYLINE HCL 25 MG TABLET PO SCH (22:49)
[2024-12-05] MEDS: methaDONE HCL 10 MG TABLET (FOR DETOX USE ONLY) PO ONE (10:50)
[2024-12-06] MEDS ORDERED: diazePAM 5 MG TABLET PO SCH (06:00)
[2024-12-06] MEDS: diazePAM 5 MG TABLET PO SCH (06:30)
[2024-12-06] MEDS: GABAPENTIN 400 MG CAPSULE PO SCH (14:02)
[2024-12-06] MEDS: diazePAM 5 MG TABLET PO PRN (18:55)
[2024-12-07] MEDS: diazePAM 5 MG TABLET PO SCH (06:00)
[2024-12-07] MEDS ORDERED: diazePAM 5 MG TABLET PO SCH (06:00)
[2024-12-07] MEDS: methaDONE HCL 10 MG TABLET (FOR DETOX USE ONLY) PO ONE (09:38)
[2024-12-07] MEDS: METHOCARBAMOL 500 MG TABLET PO PRN (21:42)
[2024-12-08] MEDS ORDERED: diazePAM 5 MG TABLET PO ONE (06:00)
[2024-12-08] MEDS: diazePAM 5 MG TABLET PO ONE (06:07)
[2024-12-08] MEDS: hydrOXYzine PAMOATE 25 MG CAPSULE (FP) PO PRN (17:53)
[2024-12-09] MEDS: methaDONE HCL 10 MG TABLET (FOR DETOX USE ONLY) PO ONE (09:32)
[2024-12-10 09:59] VITALS: BP 110/67; PULSE 96; RESP 16; TEMP 98.1
== END 2024-12-10 11:19 | disposition home or self-care (01) | DRG 773 ==
LOC: YASAS 16:43 → Y6N 21:54
PROVIDERS: ADMIT Allergy & Immunology; ATTEND Allergy & Immunology
PROC: HZ2ZZZZ Detoxification Services for Substance Abuse Treatment (ICD-10-PCS; principal; 2024-12-03)
DX: F11.23 Opioid dependence with withdrawal (principal); F10.230 Alcohol dependence with withdrawal, uncomplicated; F17.210 Nicotine dependence, cigarettes, uncomplicated; F19.282 Other psychoactive substance dependence with psychoactive substance-induced sleep disorder; G89.29 Other chronic pain
CPT/HCPCS: 36415; 80053; 80305; 80307; 85027; 86780; 93005; 93010